=== PATIENT | female | born 1945 | race Caucasian/White ===

== ENCOUNTER → 2021-06-12 | Outpatient (CLI) | payer MEDICARE, BC ==
--- NOTE | 2021-06-17 17:08 | RAD ---
Digital Mammogram Bilateral History: Routine screening Technique: 2-D digital CC and MLO views were obtained. CAD - computer aided detection was utilize d. Comparison: Mammograms from 12/11/2018 and 12/23/2017. Findings: Breast Tissue Density B : There are scattered areas of fibroglandular density There are no suspicious masses, malignant appearing calcifications, or areas of architectural distort ion. There are small areas of nodularity in both breasts which have not changed. Impression: No evidence of malignancy. Assessment: BI-RADS Category 1: Negative. Recommendation: Routine screening mammograms. The patient will receive a letter with the results in the mail. Patient information will be entered i nto the mammography reminder system with a target recall date for the next mammogram. A reminder geraldo er will be generated. Electronically signed by: Sherrie Zelaya MD (06/17/2021 5:05 PM) [id number]
== END ==
LOC: MAMMO 10:56
PROVIDERS: ATTEND Family Medicine
DX: Z12.31 Encounter for screening mammogram for malignant neoplasm of breast (principal)
CPT/HCPCS: 77063; 77067